=== PATIENT | female | born 1980 | race Caucasian/White ===

== ENCOUNTER 2017-07-12 07:19 | Emergency (ER) | payer OTHER ==
[2017-07-12 07:35] VITALS: BP 121/86
[2017-07-12] MEDS ORDERED: Lidocaine 1%* 5 ML VIAL ONE (07:46)
[2017-07-12] MEDS ORDERED: Lidocaine 2% W/EPI 1:100,000* 20 ML MDV INJ ONE (08:07)
[2017-07-12] MEDS ORDERED: Lidocaine 2% W/EPI 1:100,000* 20 ML MDV ONE (08:10)
--- NOTE | 2017-07-12 08:18 | UC ---
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 has had frequen I&Ds no fever no hx of MRSA - History of Current Complaint Chief Complaint: UCSkin Time Seen by Provider: 07/12/17 08:03 Stated Complaint: RIGHT EAR PAIN Hx Obtained From: Patient Hx Last Menstrual Period: "Oh, years ago." Onset/Duration: Gradual Onset, Lasting Days Timing: Constant Onset Severity: Mild Current Severity: Moderate Pain Intensity: 6 Pain Scale Used: 0-10 Numeric Location: Discrete Character: Swelling, Redness, Raised, Painful Aggravating: Touch Alleviating: Cold Associated Signs & Symptoms: Positive: Tenderness - Allergy/Home Medications Allergies/Adverse Reactions: Allergies Allergy/AdvReac Type Severity Reaction Status Date / Time No Known Allergies Allergy Verified 07/12/17 07:30 Home Medications: Home Medications Copper (Iud) [Paragard IUD] 1 unit IU ONCE 07/12/17 [History Confirmed 07/12/17] Review of Systems Constitutional: Negative Skin: Negative Eyes: Negative ENT: Negative Respiratory: Negative Cardiovascular: Negative Gastrointestinal: Negative Genitourinary: Negative Motor: Negative Neurovascular: Negative Musculoskeletal: Negative Neurological: Negative Psychological: Negative All Other Systems Reviewed And Are Negative: Yes PMH/Surg Hx/FS Hx/Imm Hx Previously Healthy: Yes - Surgical History Surgical History: None - Family History Known Family History: Positive: Hypertension - Social History Alcohol Use: Weekly Substance Use Type: None Smoking Status (MU): Heavy Every Day Tobacco Smoker Type: Cigarettes Amount Used/How Often: 1 PPD Length of Time of Smoking/Using Tobacco: Since Age 13 Have You Smoked in the Last Year: Yes Household Exposure Type: Cigarettes Physical Exam Triage Information Reviewed: Yes Appearance: Well-Appearing, No Pain Distress, Well-Nourished Vital Signs: Initial Vital Signs Temp 98.3 F 07/12/17 07:28 Pulse 82 07/12/17 07:28 Resp 16 07/12/17 07:28 BP 121/86 07/12/17 07:28 Pulse Ox 100 07/12/17 07:28 Vital Signs Reviewed: Yes Eyes: Positive: Conjunctiva Clear ENT: Positive: Hearing grossly normal. Negative: Nasal congestion, Nasal drainage, Trismus, Muffled/hoarse voice Dental: Negative: Abscess @ Neck: Positive: Supple, Nontender, No Lymphadenopathy Respiratory: Positive: Lungs clear, Normal breath sounds, No respiratory distress, No accessory muscle use Cardiovascular: Positive: RRR, No Murmur Abdomen Description: Positive: Nontender, Soft Musculoskeletal: Positive: ROM Intact, No Edema Neurological: Positive: Alert, Fatigued Skin Exam: Other - see image Course/Dx - Diagnoses Provider Diagnoses: INCISION AND DRAINAGE OF INFLAMMED RIGHT POSTERIOR AURICULAR EPIDERMAL INCLUSION CYST Procedures - Procedure Summary Procedure Summary: INCISION AND DRAINAGE OF INFLAMED RIGHT POSTERIOR AURICULAR SEBACEOUS CYST TO STERILE PREP ANESTH WITH 2% LIDO AND EPI (0.5 CC) INICISED WITH 11 BLADE 1 CC SEBUM EXPRESSED TOLERATED PROCEDURE WELL PATIENT DECLINED DRESSING Discharge - Discharge Plan Condition: Stable Disposition: HOME Patient Education Materials: Epidermal Inclusion Cysts (ED) Referrals: Greg Valdez MD [Primary Care Provider] - 3 Days (IF NOT BETTER) Additional Instructions: WARM SOAP COMPRESSES RECHECK FOR NEW OR WORSENING SYMPTOMS ADVIL OR ALEVE IF NEEDED FOR PAIN Images Head: 1 - RED/SWOLLEN/INFLAMMED EPIDERMAL INCLUSION CYST
== END 2017-07-12 08:41 | disposition home or self-care (01) ==
LOC: UCCORT 07:19
DX: L72.0 Epidermal cyst (principal)
CPT/HCPCS: 69000; 99211; G0463

== ENCOUNTER 2019-11-24 11:08 | Emergency (ER) | payer SELFPAY ==
[2019-11-24 11:45] VITALS: BP 124/80
--- NOTE | 2019-11-24 12:44 | UC ---
Skin Complaint HPI - HPI Summary HPI Summary: 39 year old female with no PMH presents with redness, swelling behind right ear. no drainage, no fever, no chills. no difficulty swallowing. Patient states she gets similiar sytmpoms every 1-2 years, sometimes treated with drainage, sometime antibiotics. Denies other symptoms. - History of Current Complaint Chief Complaint: UCEar Time Seen by Provider: 11/24/19 12:28 Stated Complaint: RT EAR COMPLAINT Hx Obtained From: Patient, Family/Director Speech Hx Last Menstrual Period: has an iud, does not have reg periods ?: No - iud Onset/Duration: Sudden Onset, Lasting Days Skin Exposure Onset/Duration: Days Ago Timing: Constant Onset Severity: Severe Current Severity: Severe Pain Intensity: 8 Pain Scale Used: 0-10 Numeric Location: Discrete, Ear (Right) Character: Swelling, Pain, Redness, Raised, Painful Aggravating Factor(s): Nothing Alleviating Factor(s): Nothing Associated Signs & Symptoms: Positive: Tenderness, Red Streaks. Negative: Lightheadedness, Drainage - Allergy/Home Medications Allergies/Adverse Reactions: Allergies Allergy/AdvReac Type Severity Reaction Status Date / Time No Known Allergies Allergy Verified 11/24/19 11:40 PMH/Surg Hx/FS Hx/Imm Hx Previously Healthy: Yes - Surgical History Surgical History: None - Family History Known Family History: Positive: Hypertension, Non-Contributory - Social History Alcohol Use: Weekly Substance Use Type: None Smoking Status (MU): Heavy Every Day Tobacco Smoker Type: Cigarettes Amount Used/How Often: 1 PPD Length of Time of Smoking/Using Tobacco: Since Age 13 Have You Smoked in the Last Year: Yes Household Exposure Type: Cigarettes Review of Systems All Other Systems Reviewed And Are Negative: Yes Constitutional: Negative: Fever, Chills, Fatigue Skin: Positive: Rash ENT: Positive: Ear Ache - external posterior right Genitourinary: Positive: Negative Motor: Positive: Negative Neurological: Positive: Negative Is Patient Immunocompromised?: No Physical Exam Triage Information Reviewed: Yes Appearance: Well-Appearing, No Pain Distress, Well-Nourished Vital Signs: Initial Vital Signs Temp 98.5 F 11/24/19 11:40 Pulse 76 11/24/19 11:40 Resp 16 11/24/19 11:40 BP 124/80 11/24/19 11:40 Pulse Ox 98 11/24/19 11:40 Vital Signs Reviewed: Yes Eyes: Positive: Conjunctiva Clear ENT: Positive: Hearing grossly normal Neck: Positive: Supple, Nontender, No Lymphadenopathy. Negative: Nuchal Rigidity, Enlarged Nodes @ Musculoskeletal Exam: Normal Neurological Exam: Normal Psychological Exam: Normal Skin: Positive: Other - posterior to right pinna, diffuse moderate erythema with small white head noted in center, no fluctuance, cystic structure noted, mild induration, + TTP, extending from 3cm x 2cm. Course/Dx - Course Course Of Treatment: Cellulitis: - Warm compresses to help with drainage - Antibiotics as directed x 10 days - over the counter medications to help with pain, swelling - Return with increased symptoms, fever/ chills, decreased swallowing - Differential Diagnoses - Skin Complaint Differential Diagnoses: Urticaria - Diagnoses Provider Diagnosis: Cellulitis Discharge ED - Sign-Out/Discharge Documenting (check all that apply): Patient Departure All imaging exams completed and their final reports reviewed: No Studies - Discharge Plan Condition: Good Disposition: HOME Prescriptions: Sulfamethox/Trimethoprim DS* [Bactrim DS 800/160 TAB*] 1 tab PO BID #20 tab Patient Education Materials: Cellulitis (ED) Referrals: Greg Valdez MD [Primary Care Provider] - Additional Instructions: - Warm compresses to help with drainage - Antibiotics as directed x 10 days - over the counter medications to help with pain, swelling - Return with increased symptoms, fever/ chills, decreased swallowing - Billing Disposition and Condition Condition: GOOD Disposition: Home - Attestation Statements Provider Attestation: Per institutional requirements, I have reviewed the chart, however, I was not consulted specifically or made aware of this patient by the midlevel provider. I did not personally evaluate, interact with , or disposition this patient.
== END 2019-11-24 12:45 | disposition home or self-care (01) ==
LOC: UCCORT 11:08
DX: H60.11 Cellulitis of right external ear (principal); F17.210 Nicotine dependence, cigarettes, uncomplicated
CPT/HCPCS: 99212; G0463